=== PATIENT | male | born 1990 | race Two or more races ===

== ENCOUNTER 2021-08-28 01:25 | Emergency (ER) | payer SELFPAY ==
[2021-08-28 01:32] VITALS: BP 158/92; PULSE 126; O2SAT 100
[2021-08-28 01:42] VITALS: BP 129/69; PULSE 116; RESP 20; TEMP 36.8; O2SAT 98; BMI 20.9
--- NOTE | 2021-08-28 02:04 | PC.NURSE ---
pt to room in NAD. pt alert and speaking in full sentences, respirations easy, n/l. skin w/d. VS - WNL
[2021-08-28 04:40] VITALS: BP 121/62; PULSE 85; RESP 16; TEMP 36.8; O2SAT 96
--- NOTE | 2021-08-28 06:31 | ED_ITS ---
HPI - General Adult General Chief complaint: ETOH/Substance Use Stated complaint: FALL W/LOC,BLOOD IN MOUTH,NO C/O INJURY PER EMS Time Seen by Provider: 08/28/21 06:26 Source: patient Mode of arrival: EMS Limitations: no limitations History of Present Illness HPI narrative: 30-year-old male who was brought to the emergency department for evaluation polysubstance use and altered mental status. The patient states that he used Xanax crack cocaine and heroin. He believes that he then had a panic attack so he had his friend called ambulance. EMS found the patient to be altered initially but then he became awake and alert without any treatment. The patient was cooperative on presentation to the emergency department but states that he was sleepy and just wanted to rest. He denied being suicidal or homicidal. He states that he does not want to get and a drug treatment program and he does not want to talk to a crisis counselor. He denied being ill recently. He denied fever, chills, chest pain, shortness of breath, nausea, vomiting, abdominal pain. Related Data Allergies Allergy/AdvReac Type Severity Reaction Status Date / Time No Known Allergies Allergy Verified 08/28/21 01:49 Review of Systems Review of Systems: Yes all other systems are reviewed and are negative [facility] Past Medical History [facility] Narrative: Past medical history: None. Past surgical history: None. Social history the patient does smoke cigarettes, he smokes 1 pack per day times 10 years. He denies alcohol use. He states that he uses heroin, cocaine and marijuana. Medical History Substance abuse Social History Social History Advance Directives: No Advance Directives Information Provided: No Physical Exam Vital Signs: Vital Signs: Last Vital Signs Temp 98.3 F 08/28/21 04:40 Pulse 85 08/28/21 04:40 Resp 16 08/28/21 04:40 BP 121/62 08/28/21 04:40 Pulse Ox 96 08/28/21 04:40 BMI result Body Mass Index 20.9 Const: General: cooperative and no acute distress Orientation/consci ousness: oriented to person and oriented to place Limitations: no limitations HENMT: Head: Yes normal to inspection, Yes normocephalic and Yes atraumatic Ears: external ears normal General nose exam: Normal external nose present Face and sinus: Yes normal facial exam Mouth: Normal oral and palatal mucosa present Throat: Yes posterior oropharynx normal Eyes: General: appearance normal, both eyes and all related structures Pupils: Equal, round and reactive pupils present Neck: Neck: Yes normal visual inspection, Yes no lymphadenopathy, Yes trachea midline and Yes supple Chest: Chest palpation & inspection: normal inspection of the chest and normal palpation of entire chest wall Resp: Effort & Inspection: normal respiratory effort and able to speak in complete sentences Auscultation: clear to auscultation bilaterally Cardio: Rate: regular rate Rhythm: regular rhythm Heart sounds: S1 normal heart sound present, S2 normal heart sound present and no murmurs GI: Inspection: Yes normal to inspection Palpation (GI): Soft to palpation, nontender and no guarding Auscultation: normal bowel sounds : General: Yes no CVA tenderness Back/Spine/Pelvis: Back: no CVA tenderness Skin: General skin exam: no rashes or lesions noted Neuro: General: oriented to person and oriented to place Cranial nerves: Yes CN's II-XII intact bilaterally and Yes Equal, round and reactive pupils present Cognition (Neuro): normal cognition Motor exam (neuro): 5/5 motor strength present throughout Extrem: General: Yes normal to inspection Psych: Appearance: grossly normal Speech and movement: Normal speech and movement present Affect: normal affect Attitude: cooperative Thought process: Normal thought process present Thought content: Normal thought content present Course Course Course Narrative: 30-year-old male with a history of polysubstance use disorder who presents emergency department after using Xanax cocaine and possibly heroin. On presentation he was able to give a history and did not appear to be altered. The patient denied suicidal or homicidal ideation. He states that he does not want any counseling and he does not want to get into a drug treatment program. The patient's initial vital signs revealed tachycardia with a pulse of 116 but this corrected without any treatment exam was otherwise unremarkable. The patient was kept in the emergency department for approximately 5 hours for observation. The patient is currently awake and alert therefore he will be discharged home. He will be sent home with a intranasal Narcan dispense pack. Discharge Plan Discharge Clinical Impression: Heroin abuse, Cocaine abuse, Benzodiazepine abuse Patient Disposition: Home, Self-Care Instructions: Narcotic Use Disorder (ED) Additional Instructions: Your are being discharged home with intranasal Narcan. If you are going to continue to use heroin, you should make sure that there is a sober person with you that is not using drugs and that this person can administer intranasal Narcan in the event that you stop breathing. Follow-up with your doctor in 2 days. Please return to the emergency department if your symptoms get worse or if you develop any symptoms that are concerning to you.
== END 2021-08-28 07:13 | disposition home or self-care (01) ==
PROVIDERS: Emergency Provider Emergency Medicine Emergency Medical Services; PCP Internal Medicine
DX: F19.10 Other psychoactive substance abuse, uncomplicated (principal); F11.10 Opioid abuse, uncomplicated; F14.10 Cocaine abuse, uncomplicated; F13.10 Sedative, hypnotic or anxiolytic abuse, uncomplicated; F17.200 Nicotine dependence, unspecified, uncomplicated
CPT/HCPCS: 99283